=== PATIENT | female | born 1985 | race Hispanic/Latino ===

== ENCOUNTER 2024-08-07 13:13 | Emergency (ER) | payer BC, SELFPAY ==
[2024-08-07 13:19] VITALS: BP 128/88
[2024-08-07 13:28] VITALS: BP 116/80
[2024-08-07 14:00] VITALS: BP 106/67
[2024-08-07] MEDS: DELTASONE 50 MG PO (14:28)
--- NOTE | 2024-08-07 14:28 | ED.GENMED ---
History of Present Illness
General
Chief Complaint: Allergic Reaction
Source: patient
Exam Limitations: none
Time Seen by Provider: 08/07/24 13:28
History of Present Illness
History of Present Illness:
39-year-old female who presents for evaluation. The patient states that she had a flu shot on 27 July and had some swelling of her lips and tightening of her throat. Trouble short of breath. She took some Benadryl at night debated going to the
emergency department. However she felt a little bit better but when her lips persistently swelled and she had advice from a friend to put apple cider vinegar on her lips. Since then her lips have been consistently swollen. She also has had a
little bit of feeling like she cannot swallow normally. Patient is not sure if it is related to the influenza vaccine or the apple cider vinegar. She has been trying a Chapstick. Currently denies difficulty breathing. No drooling.
Past History
Past History
ED Past Medical History: Cancer (Right sided breast CA); Negative Asthma, HTN, Hypercholesterolemia or NIDDM
ED Past Surgical History: Cholecystectomy
Social History
Tobacco: Non-smoker
Alcohol: None
Personal:
Living: with family
Phy Exam
Physical Exam
Physical Exam:
CONSTITUTIONAL Patient alert and oriented to person, place and time. Well-appearing. Vital signs reviewed.
HEAD atraumatic, normocephalic.
EYES eyelids normal to inspection, Extraocular muscles intact, Conjunctiva normal, Sclera normal.
ENT mild swelling to lips with some dryness noted. Minor uvular swelling and redness. No stridor. No drooling
NECK normal range of motion, Trachea midline, no jugular venous distention.
RESPIRATORY CHEST No respiratory distress noted, Chest expansion equal, Bilateral breath sounds clear.
CARDIOVASCULAR regular rate and rhythm, Heart sounds normal.
BACK normal inspection, no obvious deformities
UPPER EXTREMITY range of motion normal, Motor strength normal, no cyanosis, no edema.
LOWER EXTREMITY range of motion normal, Motor strength normal, no cyanosis, no edema.
NEURO Speech normal, No focal motor deficits, Kathy coma scale 15, Memory normal, Cranial Nerves intact to screening exam.
SKIN skin warm, dry, and normal in color.
Course
Orders/Labs/Results
Orders:
Orders
08/07/24 14:17
Prednisone [Deltasone] 50 mg PO NOW STA
Vital Signs
Initial and Last Documented VS:
Initial Vital Signs
Temp Pulse Resp BP Pulse Ox
98.4 F 85 18 128/88 100
08/07/24 13:19 08/07/24 13:19 08/07/24 13:19 08/07/24 13:19 08/07/24 13:19
Last Documented Vital Signs
Temp Pulse Resp BP Pulse Ox
98.4 F 60 14 106/67 100
08/07/24 13:19 08/07/24 14:00 08/07/24 14:00 08/07/24 14:00 08/07/24 14:00
MDM/Problems Addressed
MDM/Problems Addressed:
Allergic reaction, angioedema
*Pulse Oximetry
Patient hypoxic: no
*Critical Care Note
Total Time (30-74mins, 75-104mins- exclusive of procedures): Not Applicable
Data Reviewed
Source: patient
Further Testing Considered But Not Given:
Consider lab work but do not suspect can be helpful at this time. Trial steroids
Patient Management
Escalation/DeEscalation of care consider admission/obs:
Trial course of steroids as well as recommended Vaseline only to the lips. Advised against repeat influenza vaccine in the future
ED Attending Note
-
Portions of this chart may have been created with voice recognition software.� Occasional wrong word or��sound alike� substitutions may have occurred due to the inherent limitations of voice recognition software.
Discharge Plan
Departure
Patient Disposition: Home (Routine Discharge)
Date of Disposition: 08/07/24
Time of Disposition: 14:28
Patient with high blood pressure during this ER visit?: No
Discharge Problem:
Allergic reaction
Instructions: Allergic Reaction ED
Prescriptions:
New
prednisone 10 mg Tablet
See Rx Instructions .ROUTE .COMPLEX Qty: 45 0RF
Rx Instructions:
Take By Mouth:
50 mg daily x3 days, 40 mg daily x3 days,
30 mg daily x3 days, 20 mg daily x3 days,
10 mg daily x3 days
Referrals:
NONE,* [Family Provider] -
Stand Alone Forms: Return to Work
Activity Restrictions/Additional Instructions:
Return immediately for shortness of breath, lip swelling, tongue swelling, drooling, or any other concerns.
Please only use Vaseline on your lips. If intermittent swelling persist, you may need to follow-up with an supervisor paper testing.
Interventions
Interventions:
*Risk Screen - Suicide Last Done: 08/07/24 13:21
*General Assessment Last Done: 08/07/24 13:21
*Neglect/Abuse Screening Last Done: 08/07/24 13:21
*Nursing Disposition Last Done: 08/07/24 14:55
ED- Cardiac Assessment Last Done: 08/07/24 14:54
ED- Pulmonary Assessment Last Done: 08/07/24 14:54
ED-Skin Assessment Last Done: 08/07/24 14:54
Discharge Date and Time
Discharge Date/Time: 08/07/24 14:56
Print Language: BELARUSIAN
== END 2024-08-07 14:56 | disposition home or self-care (01) ==
LOC: EMR 13:13
PROVIDERS: EMERGENCY PHYSICIAN Emergency Medicine
DX: T78.40XA Allergy, unspecified, initial encounter (principal); T78.3XXA Angioneurotic edema, initial encounter; X58.XXXA Exposure to other specified factors, initial encounter; Z85.3 Personal history of malignant neoplasm of breast; Z90.49 Acquired absence of other specified parts of digestive tract
CPT/HCPCS: 99283